=== PATIENT | male | born 1940 | race Caucasian/White ===

== ENCOUNTER → 2016-06-30 | Outpatient (CLI) | payer BC ==
[~2016-06-30] MED LIST: EPP3/2 IM; LPT10 PO; LSN/10125 PO
--- NOTE | 2016-06-30 08:34 | DIAGNOSTIC IMAGING REPORT ---
TWO VIEW CHEST CLINICAL HISTORY: Atypical chest pain. Cough. FINDINGS: PA and lateral chest radiographs are compared to study dated 12/19/2014. The heart is top normal for projection. There is atherosclerotic calcification of the thoracic aorta. The pulmonary vascular structures noncongested. Chronic interstitial thickening and mild elevation of the right hemidiaphragm are similar to previous. No airspace consolidation or pleural effusion is identified. There is no pneumothorax. The skeletal structures are osteopenic. The bony thorax appears intact. IMPRESSION: No active disease in the chest. Electronically signed by: Clarence Vuong M.D. 06/30/2016 8:32 AM Dictated Date/Time: 06/30/2016 8:31 AM
== END | disposition home or self-care (01) ==
LOC: C.RADBC 08:06
PROVIDERS: ATTEND Internal Medicine Geriatric Medicine
DX: R05 Cough (principal); R07.9 Chest pain, unspecified

== ENCOUNTER → 2017-01-14 | Outpatient (CLI) | payer BC ==
[2017-01-14 12:07] LABS: URINE APPEARANCE CLEAR (CLEAR); URINE BILIRUBIN NEG (NEG); URINE COLOR YELLOW; URINE EPITHELIAL CELL AUTO 0-5 /lpf (0-5); URINE NITRITE NEG (NEG); URINE PH 6.5 (4.5-7.5); URINE SPECIFIC GRAVITY 1.024 (1.000-1.030); UROBILINOGEN NEG (NEG); ZZUR CULT IF INDIC CLEAN CATCH NO
[2017-01-14 12:14] LABS: MANUAL MICROSCOPIC REQUIRED? NO; REVIEW REQ? NO
[2017-01-14 12:37] LABS: ESTIMATED AVERAGE GLUCOSE 131 mg/dl; HA1C FLAG Normal (Normal)
[2017-01-14 12:40] LABS: ALB/GLOB RATIO 1.1 (0.9-2); ALKALINE PHOSPHATASE 84 U/L (45-117); ALT/SGPT 28 U/L (12-78); AST/SGOT 14 U/L (15-37); BLOOD UREA NITROGEN 19 mg/dl (7-18); BUN/CREATININE RATIO 17.1 (10-20); CALCIUM 8.4 mg/dl (8.5-10.1); CARBON DIOXIDE 29 mmol/L (21-32); CHLORIDE 106 mmol/L (98-107); GLUCOSE 99 mg/dl (70-99); HDL CHOLESTEROL 42 mg/dl; SODIUM 141 mmol/L (136-145)
[2017-01-14 12:51] LABS: CHOLESTEROL 149 mg/dl (0-200); CHOLESTEROL/HDL RATIO 3.5; LDL CHOLESTEROL CALCULATED 86 mg/dl; TRIGLYCERIDES 107 mg/dl (0-150); VERY LOW DENSITY LIPOPROT CALC 21 mg/dl
== END | disposition home or self-care (01) ==
LOC: C.LAB 11:00
PROVIDERS: ATTEND Internal Medicine Geriatric Medicine
DX: I10 Essential (primary) hypertension (principal); E78.5 Hyperlipidemia, unspecified; R35.1 Nocturia; R73.9 Hyperglycemia, unspecified; N20.0 Calculus of kidney

== ENCOUNTER → 2017-01-27 | Outpatient (CLI) | payer BC ==
--- NOTE | 2017-01-27 13:15 | DIAGNOSTIC IMAGING REPORT ---
KUB CLINICAL HISTORY: 76 years-old Male presenting with KUB. TECHNIQUE: Single supine view of the abdomen was obtained. COMPARISON: 12/05/2015. FINDINGS: Allowing for the presence of gas and stool, no renal calculi are radiographically evident. Mild stool burden. Paucity of bowel gas, nonspecific. No gross pneumoperitoneum. Multiple pelvic phleboliths. No calcifications along the course of the ureters. Degenerative changes of the spine. IMPRESSION: 1. No radiographically apparent renal calculi. Electronically signed by: Wiliam Ta M.D. 01/27/2017 1:14 PM Dictated Date/Time: 01/27/2017 1:13 PM
== END | disposition home or self-care (01) ==
LOC: C.RAD 12:23
PROVIDERS: ATTEND Urology
DX: N20.0 Calculus of kidney (principal); N40.1 Benign prostatic hyperplasia with lower urinary tract symptoms

== ENCOUNTER 2023-05-20 08:55 | Observation (INO) ==
--- NOTE | 2023-04-20 11:47 | PAT Medication Instructions ---
Medication Instructions Date of Service April 20, 2023 Home Medications Medication Instructions Recorded losartan 50 mg-hydrochlorothiazide 1 tab PO DAILY #90 tabs 09/09/22 12.5 mg tablet atorvastatin 10 mg tablet 10 mg PO DAILY #90 tabs 01/25/23 cholecalciferol (vitamin D3) 50 50 mcg PO DAILY #30 caps 03/02/23 mcg (2,000 unit) capsule epinephrine 0.3 mg/0.3 mL 0.3 mg (0.3 mL) IM Q10M PRN 03/02/23 injection, auto-injector anaphylaxis #3 ea finasteride 5 mg tablet 5 mg PO DAILY #90 tabs 04/10/23 losartan 50 mg-hydrochlorothiazide 12.5 mg tablet 1 tab PO DAILY atorvastatin 10 mg tablet 10 mg PO DAILY cholecalciferol (vitamin D3) 50 mcg (2,000 unit) capsule 50 mcg PO DAILY epinephrine 0.3 mg/0.3 mL injection, auto-injector 0.3 mg (0.3 mL) IM Q10M PRN anaphylaxis finasteride 5 mg tablet 5 mg PO DAILY acetaminophen 500 mg tablet 500 mg PO Q6H PRN Pain multivitamin 1 tab PO QAM Continue as directed atorvastatin 10 mg tablet 10 mg PO DAILY epinephrine 0.3 mg/0.3 mL injection, auto-injector 0.3 mg (0.3 mL) IM Q10M PRN anaphylaxis (if needed) finasteride 5 mg tablet 5 mg PO DAILY DO NOT take the morning of surgery losartan 50 mg-hydrochlorothiazide 12.5 mg tablet 1 tab PO DAILY cholecalciferol (vitamin D3) 50 mcg (2,000 unit) capsule 50 mcg PO DAILY multivitamin 1 tab PO QAM Take morning of surgery With a small sip of water, OTHERWISE NOTHING TO EAT OR DRINK AFTER MIDNIGHT: acetaminophen 500 mg tablet 500 mg PO Q6H PRN Pain (if needed) Take evening before surgery acetaminophen 500 mg tablet 500 mg PO Q6H PRN Pain (if needed) Other Notes If you have any questions please call us at [phone] or [phone] or [phone] or [phone]
--- NOTE | 2023-04-26 10:16 | Anesthesiology Consultation ---
Date of Service April 26, 2023 Assessment & Plan (1) Encounter for pre-operative examination: - Infectious disease screening: Per assessment on 04/26/23: No known infectious disease contacts or current infectious disease symptoms. No noted recent Covid positive test result. - Outpatient joint assessment: Pt currently scheduled for inpatient pathway. If surgeon requests review for outpatient joint pathway, patient is not recommended candidate for outpatient joint program from anesthesia standpoint. - PCP visit (03/02/23): "followup to medical problems outlined below for 82 year old.. he is keeping active with no cp or sob this fall.. Subcentimeter adenoma removed during colonoscopy January 2015. Follow-up not recommended by gi but offered no melena bright red blood.. hip pain and advanced arthritis on xray hip and ortho notes from november 2022 offered PT or ortho and reviewed walking and exercises.. hypertension stable and has been feeling well no chest pain or shortness of breath walking regularly. Continues on losartan /hydrochlorothiazide. Blood pressures at home with well controlled. No lightheadedness dizziness or recent falls. prediabetes /Hyperglycemia stable with A1cs up to 6.2 in august 2022 and slip to recheck reordered Reviewed dietary efforts. Family history of diabetes with his brother. Continue to watch with prediabetes. No polyuria or hypoglycemic symptoms." Chart Review Chart Review: Acceptable Risk for Surgery and Patient seen in Pre Admission Testing Teaching & Discussion Pre-Anesthesia Teaching/Discussion Notes: Instructed NPO after midnight before surgery,except medications with 15 cc of water. Medication instructions provided according to the PAT guidelines. History Surgery Operation Date: 05/20/23 09:05 Proposed Procedures p Right Total Hip Arthroplasty Anterior - Marcelo Hilario DO Height/Weight Height: 5 ft 10 in Weight: 78.9 kg Allergies Allergy/AdvReac Type Severity Reaction Status Date / Time bee venom protein (honey bee) Allergy Severe SOB, Verified 04/26/23 10:15 swelling, hives peanut Allergy Severe Throat Verified 04/26/23 10:15 swelling, skin redness, hives ciprofloxacin Allergy Unknown Hives Verified 04/26/23 10:15 Cephalexin TABS Allergy Unknown Hives Uncoded 04/20/23 08:00 Lisinopril TABS Allergy Unknown Hives Uncoded 04/20/23 08:00 Medications Home Medications Medication Instructions Recorded Confirmed Last Taken losartan 50 mg-hydrochlorothiazide 1 tab PO DAILY #90 tabs 09/09/22 04/20/23 Unknown 12.5 mg tablet atorvastatin 10 mg tablet 10 mg PO DAILY #90 tabs 01/25/23 04/20/23 Unknown cholecalciferol (vitamin D3) 50 50 mcg PO DAILY #30 caps 03/02/23 04/20/23 Unknown mcg (2,000 unit) capsule epinephrine 0.3 mg/0.3 mL 0.3 mg (0.3 mL) IM Q10M PRN 03/02/23 04/20/23 Unknown injection, auto-injector anaphylaxis #3 ea finasteride 5 mg tablet 5 mg PO DAILY #90 tabs 04/10/23 04/20/23 Unknown acetaminophen 500 mg tablet 500 mg PO Q6H PRN Pain 04/20/23 04/20/23 Unknown multivitamin 1 tab PO QAM 04/20/23 04/20/23 Unknown Past Medical History Medical History Hyperglycemia 02/2023 A1C 6.2%, PCP monitoring History of colon polyps 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; no issues Osteoarthritis of right hip BPH (benign prostatic hyperplasia) Dyslipidemia Hypertension Nephrolithiasis hx Trigger finger, acquired Exercise / Class Metabolic Activity II 4-5 Yardwork/Stairs/Walk up hill Past Family History Family History Other Adopted Past Surgical History Surgical History Hx of colonoscopy Hx of cystoscopy "shaved prostate" History of lithotripsy History of mandibular surgery fracture repair > no ROM limitations per patient, "mild ache" if held open for long period Hx of tonsillectomy Past Anesthesia History No Hx of Anesthesia Complications and No Family Hx of Anesthesia Complications History of PONV No Hx of PONV and No Hx of Motion Sickness Social History Smoking Status: Never smoker Do You Dip or Chew Tobacco: No Hx Alcohol Use: No Hx Substance Use: No substance use type: does not use Review of Systems Patient denies chest pain, shortness of breath, dyspnea on exertion, fever, chills, cough, wheezing, palpitations. Physical Exam Vital Signs VITALS BP 121/77 P 86 TEMP 98.2 SP02 95%RA RESP 18 PHYSICAL Full cervical extension range of motion. Full TMJ range of motion. TMD 3 finger breaths Mallampati Score 3 Dentition: intact, several crowns Lungs: clear throughout to auscultation Cardiac: regular rate and rhythm, no murmurs noted Spine: normal Carotid arteries: negative bruit Extremities: no LE edema Lab Results Anesthesia Preop Results Results Anesthesia Widget: WBC 10.09 K/ul (4.8-10.8) 04/26/23 Hgb 14.1 g/dl (14.0-18.0) 04/26/23 Hct 42.4 % (42.0-52.0) 04/26/23 Plt 335 K/uL (130-400) 04/26/23 Na 140 mmol/L (136-145) 04/26/23 K 4.4 mmol/L (3.5-5.1) 04/26/23 Cl 104 mmol/L (98-107) 04/26/23 CO2 29 mmol/L (21-32) 04/26/23 BUN 21 mg/dl (6-23) 04/26/23 Creat 0.88 mg/dl (0.6-1.4) 04/26/23 Glucose Level 102 mg/dl (70-99(Fasting)) H 04/26/23 PT 10.9 Seconds (9.0-12.0) 04/26/23 PTT 27 Seconds (21-31) 04/26/23 INR 1.0 (0.9-1.1) 04/26/23 HA1c 6.2 % (4.5-5.6) H 03/02/23 Blood Type B Negative 04/26/23 Antibody Screen NEGATIVE 04/26/23 Testing Laboratory Results HgbA1C (03/02/23): 6.2% Electrocardiogram Date: 04/26/23 NSR at 81bpm. Low voltage QRS. 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 Subsequent Echo done 01/01/21 and unremarkable* Chest X-Ray Date: 04/26/23 FINDINGS: Stable calcified granuloma within the left lower lobe. Otherwise, the lungs are clear. No pleural effusions. No pneumothorax. The cardiac silhouette remains borderline enlarged. No acute fractures identified. There are calcifications within the aortic knob. IMPRESSION: No significant change compared to the prior study. No acute process. Echocardiogram Date: 01/01/21 EF 65-70%. Grade I DD. No RWMA. Mild cLVH. Mild LAD. Trace MR/TR.
[~2023-05-20 08:55] MED LIST changes: +ACETAMINOPHEN 500 MG TAB PO SCH; +BUPIVACAINE 0.5 % 5 MG/1 ML PF 10ML VIAL ONE; -EPP3/2 IM; +FAMOTIDINE 20 MG TAB PO SCH; +GABAPENTIN 300 MG CAP PO SCH; -LPT10 PO; +LR 500ML BOLUS, THEN 15ML/HR IV SCH; +LR 60ML/HR IV SCH; -LSN/10125 PO; +ORTHO JOINT MIX INFIL SCH; +TRANEXAMIC ACID 1,000 MG **IV Intra-op IV SCH; +TRANEXAMIC ACID 1,000 MG **IV Pre-op IV SCH; +ceFAZolin 2000MG 2,000 MG/15 ML SYR IV SCH; +dexAMETHasone 4 MG TAB PO SCH
[2023-05-20] MEDS ORDERED: ONDANSETRON INJ 2 MG/ML 2 ML VIAL ONE (09:43)
[2023-05-20] MEDS ORDERED: MIDAZOLAM HCL 1 MG/ML 2ML VIAL ONE (09:43)
[2023-05-20] MEDS ORDERED: LIDOCAINE 2% 2 ML VIAL/AMP(20MG/ML) INFIL ONE (09:43)
[2023-05-20] MEDS ORDERED: fentaNYL citrate PF 100 MCG/2 ML VIAL ONE (09:43)
[2023-05-20] MEDS ORDERED: PROPOFOL IV EMULSION 10 MG/ML 20 ML VIAL IV ONE ×2 (09:43→11:16)
--- NOTE | 2023-05-20 10:01 | History & Physical Bridge Note ---
Date of Service May 20, 2023 History & Physical Bridge Note I have examined the patient, reviewed the History & Physical and in the interval since the performance of the History & Physical I have noted the following changes of clinical significance: no changes noted
[2023-05-20] MEDS ORDERED: Nursing to Pharmacy Communication SCH (10:15)
[2023-05-20] MEDS ORDERED: fentaNYL citrate PF 100 MCG/2 ML VIAL IV PRN (10:35)
[2023-05-20] MEDS ORDERED: ATROPINE SULFATE 0.1 MG/ML 10ML SYR IV PRN (10:35)
[2023-05-20] MEDS ORDERED: ONDANSETRON INJ 2 MG/ML 2 ML VIAL IV PRN ×2 (10:35→16:20)
[2023-05-20] MEDS ORDERED: ePHEDrine sulfate 50 MG/ML AMP IV PRN (10:35)
[2023-05-20] MEDS ORDERED: ORTHO JOINT ANESTHETIC ONE (10:45)
[2023-05-20] MEDS ORDERED: PHENYLEPHRINE 100MCG/ML 10ML SYR IV ONE (11:27)
[2023-05-20] MEDS ORDERED: ePHEDrine sulfate 50 MG/5 ML SYR ONE (11:27)
--- NOTE | 2023-05-20 12:16 | Operative Report ---
PG Post Operative Report Pre & Post Diagnosis Operation Date: 05/20/23 10:50 Pre-Op Diagnosis: Degenerative Joint Disease Right Hip Post-Op Diagnosis: Degenerative Joint Disease Right Hip I identified the patient and participated in the time-out.: Yes Procedure Operation Date: 05/20/23 10:50 Actual Procedures p Right Anterior Total Hip Arthroplasty(Right) - Marcelo Hilario DO Surgeon Marcelo Hilario DO Sand Sifter Marcelo Schaefer PA-C Estimated Blood Loss 200 Findings Consistent with Post-Op Diagnosis Specimens Right femoral head Description of Procedure Implants used I used a ZimmerBiomet total hip arthroplasty system with a size 2 standard offset Avenir Complete stem, a 52 mm G7 cup with a 25mm screw, an E1 polyet hylene liner, a 36mm ceramic head with a +3.5 neck. Lavon arrived at the hospital for the above procedure. He was seen in the preoperative holding area and the operative extremity was identified and signed. He was given a spinal anesthetic, a preoperative antibiotic, and TXA. He was then taken back to the operating room and laid on the table in the supine position. He was given basic sedation. The operative leg was secured to a Puristst leg positioner. The hip was then prepped and draped in sterile fashion. A timeout was done and the patient and the operative extremity was properly identified. An anterior approach was used. Dissection was taken down through the fascia and the tensor muscle belly was retracted laterally and the rectus was retracted medially. The circumflex vessels were identified and ligated. The capsule was then incised and tagged for later repair. The femoral neck was then cut and the femoral head was removed. The acetabulum was exposed. Time was spent doing a complete circumferential labral release. Sequential reaming of the acetabulum up to a size 51 reamer was done. Final reamings were done under fluoroscopy to ensure appropriate version. A Biomet 52 mm G7 cup was then impacted into place. A single 25 mm screw was placed. The E1 polyethylene liner was then snapped into place. Surrounding soft tissues were then injected with 100 cc of an orthopedic pain control cocktail. The proximal femur was then exposed. Sequential broaching up to a size 2 broach was done. Off that broach a size 36 head with a +3.5 neck was trialed. The hip was reduced and fluoroscopic images showed anatomic alignment of the implants in acceptable length. The broach was removed. The final size 2 standard offset Avenir Complete stem was then impacted into place. A ceramic 36 mm head with a +3.5 neck was then impacted onto the stem and the hip was reduced. Final fluoroscopic images showed anatomic alignment of the hip. The capsule was then closed with #1 Vicryl suture. A dilute betadyne lavage was then done for 3 minutes. The joint was then irrigated with normal saline solution. The fascia was closed with #1 PDS suture. Skin was closed with 2-0 Vicryl, asia, and a Silverlon dressing. He was then transferred to a hospital bed and taken to the post anesthesia care unit in stable condition. He tolerated the procedure well. Marcelo Schaefer PA-C, was present for the entire procedure. He was critical for patient positioning, prepping, draping, retraction exposure, wound closure and application of sterile dressing. I attest to the content of the Intraoperative Record and any orders documented therein. Any exceptions are noted below.
--- NOTE | 2023-05-20 13:09 | Fluoroscopy Report ---
FL hip RT 1V CLINICAL HISTORY: RIGHT ANTERIOR HIPright hip arthroplasty COMPARISON STUDY: Pelvis and hip radiographs of same day FLUOROSCOPY TIME: 16.4 seconds FLUOROSCOPY IMAGES: 1 EXPOSURE DOSE: 2.01 mGy FINDINGS: Right hip arthroplasty demonstrates satisfactory alignment. No acute fracture or unexpected opaque foreign body. Surgical clips project over the scrotum. Soft tissue swelling with deep tissue air projected over the lateral right hip. IMPRESSION: Fluoroscopic assistance as above. ACT 112: Negative or not required by law. Electronically signed by: Reggie Austin M.D. 05/20/2023 1:07 PM
--- NOTE | 2023-05-20 15:03 | Anesthesiology Progress Note ---
Date of Service May 20, 2023 Anesthesia Post Procedure Vital Signs Vital Signs: Temp Pulse Pulse Resp BP Pulse Ox O2 Del Method 05/20/23 14:40 77 15 118/73 94 Room Air 05/20/23 14:30 80 17 118/68 94 Room Air 05/20/23 14:20 71 13 117/68 94 Room Air 05/20/23 14:10 75 16 109/67 94 Room Air 05/20/23 14:00 71 15 118/70 95 Room Air 05/20/23 13:50 72 13 122/74 95 Room Air 05/20/23 13:40 36.3 C L 70 14 114/73 95 Room Air 05/20/23 13:30 74 17 104/75 94 Room Air 05/20/23 13:20 71 19 110/71 93 Room Air 05/20/23 13:10 71 13 110/65 94 Room Air 05/20/23 13:00 72 15 114/64 94 Room Air 05/20/23 12:50 71 16 113/65 99 Oxymask 05/20/23 12:40 71 21 105/68 100 Oxymask 05/20/23 12:34 36.1 C L 72 12 103/62 97 Oxymask 05/20/23 09:36 36.8 C 93 H 18 148/87 H 93 Room Air O2 Flow Rate 05/20/23 14:40 05/20/23 14:30 05/20/23 14:20 05/20/23 14:10 05/20/23 14:00 05/20/23 13:50 05/20/23 13:40 05/20/23 13:30 05/20/23 13:20 05/20/23 13:10 05/20/23 13:00 05/20/23 12:50 4 05/20/23 12:40 12 05/20/23 12:34 12 05/20/23 09:36 Pain Intensity Hip: Pain Intensity: 2 Transfer of Care Handoff Completed per policy Notes Mental Status: alert / awake / arousable Patient Amnestic to Procedure: Yes Nausea / Vomiting: adequately controlled Pain: adequately controlled Airway Patency, RR, SpO2: stable & adequate BP & HR: stable & adequate Hydration State: stable & adequate Neuraxial Anesthesia: was administered and sensory block is resolving Anesthetic Complications: no major complications apparent
--- NOTE | 2023-05-20 15:27 | XRay Report ---
AP PELVIS, CROSSTABLE LATERAL RIGHT HIP History: Right total hip arthroplasty. Degenerative arthritis. Postop. FINDINGS: The patient is status post a right total hip arthroplasty. The hardware is intact. No fract ure or dislocation. Skin asia are in place. IMPRESSION: Right total hip arthroplasty. No evidence for hardware complication ACT 112: Negative or not required by law. Electronically signed by: Yifan Lira M.D. 05/20/2023 3:26 PM
[2023-05-20] MEDS ORDERED: METOCLOPRAMIDE HCL INJ 5 MG/ML 2 ML VIAL IV PRN (16:20)
[2023-05-20] MEDS ORDERED: MAGNESIUM HYDROXIDE SUSP 30 ML UDC PO PRN (16:20)
[2023-05-20] MEDS ORDERED: HYDROmorphone INJ 0.5 MG/0.5 ML SYR IV PRN (16:20)
[2023-05-20] MEDS ORDERED: traMADol HCL 50 MG TABLET PO PRN (16:20)
[2023-05-20] MEDS ORDERED: NALOXONE HCL 0.4 MG/1 ML VIAL/CARP IV PRN (16:20)
[2023-05-20] MEDS ORDERED: bisacodyL 10 MG SUPP PR PRN (16:20)
[2023-05-20] MEDS ORDERED: oxyCODONE HCL IR 5 MG TAB (IMMEDIATE RELEASE) PO PRN (16:20)
[2023-05-20] MEDS: ACETAMINOPHEN 500 MG TAB PO SCH ×2 (17:16→22:24)
[2023-05-20] MEDS: SODIUM CHLORIDE 0.9% 1,000 ML IV SCH (17:45)
[2023-05-20] MEDS: KETOROLAC TROMETHAMINE 15 MG/ML VIAL IV SCH ×2 (17:46→22:24)
[2023-05-20] MEDS: ceFAZolin 2000MG 2,000 MG/15 ML SYR IV SCH (18:46)
[2023-05-20] MEDS: ALLERGY Noted to ORDERED Medication SCH ×4 (19:19→19:22)
[2023-05-20] MEDS ORDERED: SENNA 8.6 MG TAB PO SCH (21:00)
[2023-05-20] MEDS ORDERED: ASPIRIN 81 MG ECTAB PO SCH (21:00)
[2023-05-20] MEDS ORDERED: DOCUSATE SODIUM 100 MG CAP PO SCH (21:00)
[2023-05-21] MEDS: ceFAZolin 2000MG 2,000 MG/15 ML SYR IV SCH (01:29)
[2023-05-21] MEDS: SODIUM CHLORIDE 0.9% 1,000 ML IV SCH (02:36)
[2023-05-21] MEDS: ACETAMINOPHEN 500 MG TAB PO SCH (04:57)
[2023-05-21] MEDS: KETOROLAC TROMETHAMINE 15 MG/ML VIAL IV SCH (04:58)
--- NOTE | 2023-05-21 07:48 | Orthopedic Progress Note ---
Date of Service May 21, 2023 Assessment & Plan (1) Status post right hip replacement: Overall he is doing very well. Is not having much pain in the right hip. He will be seen by physical therapy today for ambulation and range of motion exercises. He is on aspirin for DVT prophylaxis. He can be discharged home later today. He will follow-up with orthopedics in 2 weeks. Oxana Hunt was seen and examined at bedside this morning. Overall is doing very well. Is not having much pain in the right hip. Has been up and ambulating to the bathroom. He has no complaints.. Review of Systems All systems reviewed & are unremarkable except as noted in HPI & below. Physical Exam On physical examination of the right hip, the dressing is clean and dry. His leg is out full extension. He has active dorsiflexion plantarflexion of his right ankle.. Results & Data Results & Data Laboratory Results . Diagnostic Findings Postoperative x-rays of the right hip show the prosthesis to be in anatomic alig nment without any evidence of fracture complication, or loosening.. PG Care Time/CCT Total # of Minutes Spent Total Time Spent with Patient: Total time spent is greater than 50% in coordination of care (as documented) at patient's floor/unit and/or counseling patient: Coding Level of Care Code 37482 Post Operative Follow-Up Diagnoses Status post right hip replacement Z96.641
--- NOTE | 2023-05-21 07:49 | Discharge Summary ---
Date of Service May 21, 2023 Principal Diagnosis Same as "Discharge Diagnosis" noted below under Discharge Instructions. Discharge Exam On physical examination of the right hip, the dressing is clean and dry. His leg is out full extension. He has active dorsiflexion plantarflexion of his right ankle.. Discharge Data Procedures Performed Operation Date: 05/20/23 10:50 Actual Procedures p Right Anterior Total Hip Arthroplasty(Right) - Marcelo Hilairo DO Ordered Studies 05/20/23 10:50 FL hip RT 1V Routine Hospital Course (1) Status post right hip replacement: On May 20, 2023 Gilbert arrived at [facility] and underwent a right hip replacement without complication. He had a spinal anesthetic. Postoperatively he was started on aspirin for DVT prophylaxis and transferred to the general orthopedic floors. His hospital course was uneventful. On postop day #1, his vital signs were stable and his pain was well-controlled. He was able to participate well with physical therapy doing ambulation and range of motion exercises. He was then discharged home. He will follow-up with orthopedics in 2 weeks. PG Care Time/CCT Total # of Minutes Spent Total Time Spent with Patient: Total time spent is greater than 50% in coordination of care (as documented) at patient's floor/unit and/or counseling patient: Discharge Plan Discharge Items Patient Disposition: Home - Self-Care Reason For Visit: post surgical care Discharge Diagnosis: Right hip replacement Activity: Per Instructions section Non-emergency contact: Surgeon Call non-emergency contact if: your wound has increased redness and your wound has increased drainage Follow-up/Referrals: Pro,Sawyer Shahid MD [Primary Care Provider] - Diet: Regular Addtl Attending Provider Instructions: Activity and Therapy Recommendations: * If you are using [facility] then therapy will be provided at your home until they feel you have accomplished all of your goals. * If you are using [facility] then Physical Therapy will be provided until they feel you are ready to start Outpatient Physical Therapy. * If you are not using home therapy then Outpatient Physical Therapy should start about 3-5 days from your day of surgery. Therapy will last about 6-10 weeks * You were shown a series of exercises in the hospital. Do these exercises three times each day including the exercises you were shown in physical therapy. * Get up and walk several times each day.~ For the first four weeks, try not to stand or walk for more than one hour at a time. If you do stand or walk for more than one hour, you will not hurt anything, but your leg will likely swell.~~ * As you feel comfortable, you may change from the walker or crutches to a cane and~then to independent walking. Medications: * Narcotic You will likely be sent home from the hospital with a prescription for the narcotic pain medication that worked best throughout your stay. * Cefadroxil -take the antibiotic twice a day for 10 days to help prevent infection. * Aspirin Most patients will be required to take Aspirin 81mg twice a day for 6 weeks after surgery. This is obtained [id number] and a prescription is not necessary. * Other medications may be prescribed for specific circumstances. If you have any questions, please call the office at . * Resume previous home medications unless otherwise instructed TEDs/Elastic Stockings: The white elastic stockings help limit swelling and prevent blood clots from forming in your legs. The more you wear them, the more they work. Wear them for six weeks. Dressing Care: Leave the Silverlon dressing in place for 7 days. After 7 days you may remove the dressing. If the incision is not draining then you may leave the asia open to air. If there is a little bit of drainage or if the asia are getting stuck on your clothing then cover the incision with a dry dressing. The asia will be removed at your 2 week follow-up appointment. Showering: You may shower with the Silverlon dressing in place. Do not let the shower spray hit the dressing directly. Pat the Silverlon dressing dry. If the dressing becomes wet underneath, then simply remove the dressing. Keep the incision dry until you are 7 days out from the day of surgery. After 7 days you may remove the Silverlon dressing and shower with the asia exposed. Let soapy water run over the asia and pat them dry. Do not scrub or soak the incision. Things To Watch For: * Drainage from the incision site that occurs more than one week after your surgery. * Increased redness at the incision site. * Fever above 102 degrees Fahrenheit. * Unusual chest pain or shortness of breath. * Call [facility] at with any of the above problems Follow-Up Visit: Follow-up with Dr. Hilario's PA (Marcelo Schaefer) 2-3 weeks after your day of surgery. He will remove your asia and answer any questions. If you have any additional questions or concerns, Dr Hilario is usually in the office at the same time and will be available An appointment was probably scheduled when you signed-up for surgery in the office. If you have any questions call Office Instructions: More detailed instructions as well as Frequently Asked Questions were provided in a folder by our office when you signed-up for surgery. Please review these instructions when you get home. If you have any further questions or concerns, please feel free to call the off ice at [phone] Pending Studies at Discharge: No Stand-Alone Forms: My [facility] Medications and DC Order Prescriptions: New oxycodone 5 mg Tablet 5 mg PO Q4H PRN (Reason: pain) Qty: 30 0RF cefadroxil 500 mg capsule 500 mg PO BID 10 Days Qty: 20 0RF aspirin 81 mg Tablet,Delayed Release (Dr/Ec) 81 mg PO BID 42 Days Qty: 0 0RF Continued losartan-hydrochlorothiazide 50-12.5 mg tablet 1 tab PO DAILY Qty: 90 3RF atorvastatin 10 mg tablet 10 mg PO DAILY Qty: 90 3RF finasteride 5 mg tablet 5 mg PO DAILY Qty: 90 3RF epinephrine 0.3 mg/0.3 mL auto-injector 0.3 mg IM Q10M PRN (Reason: anaphylaxis) Qty: 3 2RF Rx Instructions: for 2 doses cholecalciferol (vitamin D3) 50 mcg (2,000 unit) capsule 50 mcg PO DAILY Qty: 30 0RF Patient Comments: HAS NOT BEEN TAKING multivitamin Tablet 1 tab PO QAM acetaminophen 500 mg Tablet 500 mg PO Q6H PRN (Reason: Pain) Discharge Orders: Discharge Order (Routine); Ordered 05/21/23 Ordered By: Marcelo Hilario Admission Data Admit Date/Time: 05/20/23 12:18 Attending Provider: Marcelo Hilario Admit Provider: Marcelo Hilario Primary Care Provider: Sawyer Turcios
[2023-05-21] MEDS ORDERED: dexAMETHasone 4 MG TAB PO SCH (08:00)
[2023-05-21] MEDS ORDERED: FINASTERIDE 5 MG TAB PO SCH (09:00)
[2023-05-21] MEDS ORDERED: ATORVASTATIN 10 MG TAB PO SCH (09:00)
[2023-05-21] MEDS ORDERED: MULTIVITAMIN TAB PO SCH (09:00)
[2023-05-21] MEDS ORDERED: LOSARTAN/HCTZ 50/12.5MG TAB PO SCH (09:00)
== END 2023-05-21 10:20 | disposition home or self-care (01) ==
LOC: ASU 08:55 → PACUINP 08:55 → 3W 16:50